=== PATIENT | male | born 1950 | race Two or more races ===

== ENCOUNTER 2025-06-07 15:20 | Emergency (ER) | payer OTHER ==
[~2025-06-07] VITALS: Ht 177.8 cm; Wt 72.6 kg
[2025-06-07] MEDS ORDERED: FAMOTIDINE/PF 20 MG/2 ML VIAL IV ONE (17:45)
[2025-06-07] MEDS ORDERED: KETOROLAC TROMETHAMINE 30 MG VIAL IV ONE (17:45)
[2025-06-07] MEDS ORDERED: CEFTRIAXONE SODIUM 2,000 MG VIAL IV ONE (17:45)
== END 2025-06-07 19:26 | disposition home or self-care (01) ==
LOC: ER 15:20
DX: K04.7 Periapical abscess without sinus (principal); L53.9 Erythematous condition, unspecified; I10 Essential (primary) hypertension
CPT/HCPCS: 96365; 99282; J0696; J1885; J3490